=== PATIENT | female | born 1980 | race Caucasian/White ===

== ENCOUNTER → 2017-03-23 | Outpatient (CLI) | payer OTHER | LOC: KOH-I 15:00 | DX: I82.621 Acute embolism and thrombosis of deep veins of right upper extremity (principal) | CPT/HCPCS: 93931; 93971 ==

== ENCOUNTER 2021-04-25 06:26 | Emergency (ER) | payer OTHER ==
[2021-04-25 06:57] LABS: HEMOGLOBIN 14.8 gm/dl (12.3-15.3); RED BLOOD COUNT 4.83 M/UL (4.00-5.10); WHITE BLOOD COUNT 5.6 K/UL (4.5-11.0)
[2021-04-25 07:20] LABS: BUN/CREATININE RATIO 23 (0-10)
== END 2021-04-25 12:45 | disposition home or self-care (01) ==
LOC: ER1 06:26
PROVIDERS: Emergency Medicine
DX: R10.31 Right lower quadrant pain (principal); R10.32 Left lower quadrant pain; R19.7 Diarrhea, unspecified; I10 Essential (primary) hypertension; I25.2 Old myocardial infarction; F17.200 Nicotine dependence, unspecified, uncomplicated; Z20.822 Contact with and (suspected) exposure to COVID-19
CPT/HCPCS: 0240U; 71045; 80053; 81001; 82550; 82553; 83690; 83735; 83874; 84484; 84703; 85025; 87040; 93005; 96374; 96375; 99284; J2270; J2405; J2550; J7030; Q9967

== ENCOUNTER 2021-05-07 11:22 | Emergency (ER) | payer OTHER | END 2021-05-07 13:12 | disposition left against medical advice (07) | LOC: ER1 11:22 | DX: Z53.21 Procedure and treatment not carried out due to patient leaving prior to being seen by health care provider (principal) ==